=== PATIENT | female | born 1995 | race Caucasian/White ===

== ENCOUNTER 2016-11-10 21:15 | Outpatient (CLI) | payer MEDICAID ==
[~2016-11-10] VITALS: Ht 170.2 cm; Wt 143.9 kg
--- NOTE | ~2016-11-10 | DS ---
PATIENT'S NAME: APOLINAR ARNOLD [facility] AGE: 21 Y [address] ROOM: [place] [address] LOCATION: GOBS ADMIT DATE: 11/10/2016 Discharge Summary DISCHARGE DATE: 11/11/2016 FAMILY PHYSICIAN: PHYSICIAN, NO ATTENDING PHYSICIAN: Bibiana Faust This is an outpatient report from the 11 of November. This is a 1, who presents at 33 weeks gestation with abdominal discomfort. Again, she is about 33 weeks' , sees Dr. Galicia. TOCO really does not show any contractions. heart tones are reassuring. Abdomen is soft and nontender. Cervix is long, thick, and closed by my check. We started an IV and gave her a liter of IV fluids, and she says she feels a little better. Offered observation versus discharge to home. Will discharge to home at this point. She will follow up with Dr. Galicia as scheduled and tomorrow if things do not improve. MD WALKER HANNON/henrry /[id number] d: 11/12/16 0502 t: 11/12/16 1011, DISCHARGE SUMMARY
[2016-11-10 21:47] LABS: BILIRUBIN URINE NEGATIVE (NEGATIVE); BLOOD URINE NEGATIVE /UL (NEGATIVE); COLOR URINE YELLOW (YELLOW); GLUCOSE URINE NEGATIVE (NEGATIVE); KETONE URINE NEGATIVE (NEGATIVE); LEUKOCYTES URINE 100 /UL (NEGATIVE); NITRITE URINE NEGATIVE (NEGATIVE); PROTEIN URINE NEGATIVE (NEGATIVE); TURBIDITY URINE CLEAR (CLEAR); UROBILINOGEN URINE NORMAL (NORMAL)
[2016-11-10 21:54] LABS: RBC URINE RARE #/HPF (NEGATIVE)
[2016-11-10 21:55] LABS: BACTERIA URINE MANY (NEGATIVE)
[2016-11-10 21:56] LABS: MUCUS URINE 1+ (NEGATIVE)
[2016-11-10] MEDS ORDERED: PRENATAL 1+1)(P1 TAB PO (22:04)
== END 2016-11-11 00:30 | disposition disaster alternative care site (69) ==
LOC: GOBM 21:15 → GOBS 21:15 → GOBM 11-11 00:30 → GOBS 11-11 00:30 → EDSTATUS 12-29 14:08 → GOBM 12-29 16:48 → EDSTATUS 12-29 21:14
PROVIDERS: Obstetrics & Gynecology
DX: O26.893 Other specified pregnancy related conditions, third trimester (principal); Z3A.33 33 weeks gestation of pregnancy; R10.9 Unspecified abdominal pain
CPT/HCPCS: G0463; J7120

== ENCOUNTER 2016-12-13 19:29 | Outpatient (CLI) | payer MEDICAID ==
[~2016-12-13] VITALS: Ht 170.2 cm; Wt 145.1 kg
[~2016-12-13 19:29] MED LIST: PRENATAL 1+1)(P1 TAB PO
== END 2016-12-13 22:40 | disposition disaster alternative care site (69) ==
LOC: GOBM 19:29 → GOBS 19:29 → GOBM 22:40
DX: O47.1 False labor at or after 37 completed weeks of gestation (principal); Z3A.37 37 weeks gestation of pregnancy
CPT/HCPCS: G0463

== ENCOUNTER 2017-01-01 06:09 | Inpatient (IN) | payer MEDICAID ==
[~2017-01-01] VITALS: Ht 170.2 cm; Wt 144.5 kg
--- NOTE | ~2017-01-01 | OR ---
PATIENT'S NAME: CATALINA [facility] AGE: 21 Y [address] ROOM: [place] [address] LOCATION: [facility] ADMIT DATE: 01/01/2017 OR/Procedure Report DISCHARGE DATE: FAMILY PHYSICIAN: Ivette Galicia MD ATTENDING PHYSICIAN: Ivette Galicia SURGEON: Ivette Galicia MD DRY HOUSE WHEELER: DATE OF PROCEDURE: 01/02/2017 PREOPERATIVE DIAGNOSES: 1. Intrauterine at 40 weeks and 5 days. 2. Morbid obesity. 3. Induction of labor. POSTOPERATIVE DIAGNOSES: 1. Intrauterine at 40 weeks and 5 days. 2. Morbid obesity. 3. Induction of labor. PROCEDURE: Spontaneous vaginal delivery. ESTIMATED BLOOD LOSS: 300 mL. ANESTHESIA: Epidural. FINDINGS: Female . score 8 and 9. Weight 7 pounds 5 ounces. Intact placenta and 3-vessel cord. Right labial laceration. INDICATIONS: This patient is a 21-year-old, G1, P0, who presented for an induction of labor. She had an uncomplicated . She did have obesity, but had no other complications besides that. She had some borderline blood pressures in the last couple of weeks, but was negative for preeclampsia workup. DESCRIPTION OF PROCEDURE: The patient was given Cervidil Ripening and then had Pitocin. She had artificial rupture of membranes. Once she had active labor, she actually progressed very quickly to complete and underwent expulsive efforts for less than 30 minutes. With expulsive effort, the head delivered over an intact perineum. The rest of fetus delivered. The nose and mouth were bulb suctioned. The cord was clamped and cut. The infant was handed to awaiting team. Cord blood was drawn. The placenta delivered with manual traction. Cervix, vagina, and perineum were examined. There was a right labial laceration which required 1 stitch of Vicryl suture. COMPLICATIONS: None. PATIENT'S NAME: CATALINA [facility] AGE: 21 Y [address] ROOM: [place] [address] LOCATION: [facility] ADMIT DATE: 01/01/2017 OR/Procedure Report DISCHARGE DATE: FAMILY PHYSICIAN: Ivette Galicia MD ATTENDING PHYSICIAN: Ivette Galicia CONDITION: Mom stable in room. to Nursery. MD RAJINDER KINCAID/modl /[id number] d: 01/02/17 1757 t: 01/14/17 1113, OPERATIVE SUMMARY
[2017-01-01 07:11] LABS: BASOPHIL % 0.3 %; EOSINOPHIL # 0.1 K/uL (0.0-0.5); EOSINOPHIL % 1.3 %; HEMATOCRIT 39.2 % (33.0-46.0); HEMOGLOBIN 12.9 g/dL (11.0-15.0); IMMATURE GRANULOCYTE # 0.1 K/uL (0.0-0.3); IMMATURE GRANULOCYTE % 0.8 %; LYMPHOCYTE # 1.8 K/uL (0.8-4.0); LYMPHOCYTE % 17.4 %; MCH 28.5 pg (27.0-34.0); MCHC 32.9 gm/dL (32.0-36.5); MCV 86.5 fl (83.0-98.0); MONOCYTE # 0.7 K/uL (0.0-1.0); MONOCYTE % 6.8 %; MPV 9.8 fl (9.4-12.4); NEUTROPHIL # (ANC) 7.5 K/uL (1.8-7.8); NEUTROPHIL % 73.4 %; NRBC % 0 /100WBC (0-0.00); PLATELET COUNT 253 K/uL (150-450); RBC 4.53 M/uL (3.50-5.00); RDW-CV 14.1 % (11.9-14.6); WBC 10.2 K/uL (4.0-11.0)
[2017-01-01] MEDS ORDERED: TUMS200 MG PO (08:49)
[2017-01-01 15:03] LABS: ALBUMIN 2.7 gm/dL (3.5-5.0); ALK PHOS 100 IU/L (33-138); ALT 16 IU/L (12-78); ANION GAP 13.4 (10.0-19.0); AST 13 IU/L (10-40); BLOOD UREA NITROGEN 5 mg/dL (6-24); CALCIUM 8.7 mg/dL (8.5-10.5); CHLORIDE 109 mMol/L (96-110); CO2 21 mMol/L (22-32); CREATININE 0.6 mg/dL (0.5-1.1); ESTIMATED GFR (MDRD EQUATION) > 60; POTASSIUM 3.4 mMol/L (3.7-5.1); SODIUM 140 mMol/L (135-145); TOTAL BILIRUBIN 0.3 mg/dL (0.0-1.5); TOTAL PROTEIN 6.7 g/dL (6.0-8.4)
--- NOTE | 2017-01-01 18:00 | NUR ---
Last VS: T:98.2 P:109 R: 18 BP: 145/87 Pain ratin. Last pain med: None given Medicated at: Effective: FHT:130 Dilatation:1 Effacement 50%: Station: -3 Significant event: PGE2 2.5 mg x3-last @ 1747. LTV moderate w/ fhr accels. Bps 130-140's/70-92. labs good
--- NOTE | 2017-01-02 16:10 | NUR ---
UP AD NORY. LOOSE STOOLS AFTER DELIVERY. MOTRIN AT 1530 FOR CRAMPING. SALINE LOCK INTACT TO RT WRIST. S/O AT BS AND SUPPORTIVE.
[2017-01-03 05:02] LABS: BASOPHIL # 0.1 K/uL (0.0-0.2); BASOPHIL % 0.5 %; EOSINOPHIL # 0.3 K/uL (0.0-0.5); HEMATOCRIT 37.8 % (33.0-46.0); HEMOGLOBIN 12.4 g/dL (11.0-15.0); IMMATURE GRANULOCYTE # 0.2 K/uL (0.0-0.3); IMMATURE GRANULOCYTE % 1.2 %; LYMPHOCYTE # 2.4 K/uL (0.8-4.0); LYMPHOCYTE % 19.8 %; MCH 28.7 pg (27.0-34.0); MCHC 32.8 gm/dL (32.0-36.5); MCV 87.5 fl (83.0-98.0); MONOCYTE % 8.4 %; MPV 10.2 fl (9.4-12.4); NEUTROPHIL # (ANC) 8.3 K/uL (1.8-7.8); NEUTROPHIL % 68.1 %; NRBC % 0 /100WBC (0-0.00); PLATELET COUNT 223 K/uL (150-450); RBC 4.32 M/uL (3.50-5.00); RDW-CV 14.1 % (11.9-14.6); WBC 12.2 K/uL (4.0-11.0)
--- NOTE | 2017-01-03 05:33 | NUR ---
VSS. Fundus firm and midline. Pt walked the halls. Independent with cares. SL to right wrist. No pain meds given this shift.
--- NOTE | 2017-01-03 15:56 | NUR ---
Met with patient, significant other and grandparent today. Introduced myself and explained my role with CM. Family lives in [place]. They go to [place] for most of their community resources. Mom is already connected with the WIC clinic in [place]. Instructed mom and dad to contact Medicaid and notify them of baby's . Also discussed signs and symptoms of post depression with mom and left her reading material to review. Mom has had a history of depression so she states she is aware of the signs to watch for. They deny any other needs at this time and plan to discharge to home tomorrow.
--- NOTE | 2017-01-03 17:25 | NUR ---
Last VS: T:97.9 P:66 R: 16 BP: 131/89 Pain ratin Last pain med: Motrin Medicated at: 1612 Effective: Yes Breasts: SOFT Nipples: SORE REDDENED, HAS LANOLIN AND APNO Fundus: FIRM, EVEN, MIDLINE Lochia: SMALL, RUBRA- PASSED 2 CLOTS QUARTER SIZED TO A LITTLE LARGER Epis/Perineum: APPROXIMATED, TENDER Voiding well: YES Significant event: JACUZIE TUB BATH, SHEETS CHANGED. PUMPING INITIATED TODAY BABY HAS NOT BEEN NURSING WELL, MORE EAGER WITH THE BOTTLE.
--- NOTE | 2017-01-04 04:38 | NUR ---
vss, fundus firm, at umbilicus, small flow. motrin given at 0216. pt has been attempting to breastfeed and then pumps. independent with cares. kiko due at 0900. home today.
[2017-01-04] MEDS ORDERED: PRISTIQ 50 MG E50 MG PO (10:29)
[2017-01-04] MEDS ORDERED: MOTRIN800 MG PO (10:29)
[2017-01-04] MEDS ORDERED: PERCOCET 5-3251 EACH PO (10:30)
== END 2017-01-04 13:15 | disposition disaster alternative care site (69) | DRG 775 ==
LOC: GOBM 06:09 → GOBS 06:09 → GOBM 06:10 → GOBS 06:10
PROVIDERS: ADMIT Obstetrics & Gynecology
PROC: 3E0P7GC Introduction of Other Therapeutic Substance into Female Reproductive, Via Natural or Artificial Opening (ICD-10-PCS; principal; 2017-01-02)
PROC: 10E0XZZ Delivery of Products of Conception, External Approach (ICD-10-PCS; 2017-01-02)
PROC: 0HQ9XZZ Repair Perineum Skin, External Approach (ICD-10-PCS; 2017-01-02)
DX: O48.0 Post-term pregnancy (principal); E66.9 Obesity, unspecified; Z37.0 Single live birth; Z3A.40 40 weeks gestation of pregnancy; O70.0 First degree perineal laceration during delivery; O99.214 Obesity complicating childbirth
CPT/HCPCS: J2590; J3010; J7120

== ENCOUNTER 2017-03-29 20:06 | Emergency (ER) | payer MEDICAID ==
--- NOTE | ~2017-03-29 | ER ---
[facility] AGE: 21 Y [address] ROOM: [place] [address] LOCATION: ED ADMIT DATE: 03/29/2017 ER/Outpatient Report DISCHARGE DATE: 03/29/2017 FAMILY PHYSICIAN: Duong Peralta PA-C ATTENDING PHYSICIAN: Albaro Jacobson Arrival Time: 20:11. Encounter Time: 20:15. SUBJECTIVE: CHIEF COMPLAINT: Abdominal pain/flank pain. HISTORY OF PRESENT ILLNESS: The patient arrives via private auto driven by her . She is a 21-year- old female, complaining of abdominal pain and flank pain. For the last week, it has been waxing and waning. Some nausea, but no vomiting. Complains of urinary frequency as well, but denies urgency or burning. Last BM was on 03/28/2017, yesterday. Normal in consistency. Other pertinent history involves that the patient is three months vaginal to their daughter. Uncomplicated and delivery. The patient had a small mass of tissue present in a stool 2-3 days ago. She took a picture of it and it appears to be a 3-4 cm piece of endometrial tissue. Possibly remaining products of conception that were within the uterine cavity. The patient denies any passage of blood or spotting recently. She is currently on the Depo-Provera shot that she received 2-3 weeks ago, but began having sex again with her over the last week to week and a half. PERTINENT REVIEW OF SYSTEMS: All systems reviewed by me and negative unless otherwise stated in the HPI. Negative for fever, chills, or sweats. PAST MEDICAL HISTORY: Includes depression. PAST SURGICAL HISTORY: Includes gallbladder surgery, shoulder surgery, but the patient did not denote aside, and tonsillectomy as a kid. SOCIAL HISTORY: Denies any street drugs or smoking, but does partake of alcohol occasionally. [facility] 21 [facility] [address] ROOM: [place] [address] LOCATION: [facility] ADMIT DATE: 03/29/2017 ER/Outpatient Report DISCHARGE DATE: 03/29/2017 FAMILY PHYSICIAN: Duong Peralta PA-C ATTENDING PHYSICIAN: Albaro Jacobson MEDICATIONS: 1. Prozac 20 mg. 2. Effexor of unknown dosing every day. 3. Depo-Provera shot. DRUG ALLERGIES: To Wellbutrin, which causes itching in the patient. PHYSICAL EXAMINATION: VITAL SIGNS: Height 5 feet 7 inches, weight 129.6 kg, blood pressure 131/82, pulse 73, respirations 16, temperature 98.1 degrees Fahrenheit via temporal scanner, SpO2 100% on room air. Pain level currently at 6/10. GENERAL: The patient is an obese female, in mild distress. Calm, alert, and oriented to person, place, and time. HEENT: Head is atraumatic and normocephalic. Eyes, conjunctivae clear. No discharge. Pupils are PERRLA bilaterally. EOMFI bilaterally. No nystagmus. Ears, TM with good light reflex bilaterally. Auditory canal patent bilaterally. Nose, turbinates are pink and not swollen. No drainage. Throat with midline uvula. No exudates, erythema, or tonsillar hypertrophy. NECK: Supple and without lymphadenopathy. Trachea midline. No JVD. LUNGS: Clear to auscultation bilaterally. No wheezes, crackles, rhonchi, or stridor. Normal respiratory effort. HEART: Regular rate and rhythm. No S3, S4, or extra sounds. ABDOMEN: With positive bowel sounds x4. Normal percussion, but technically difficult due to body habitus. Soft. Mildly tender right upper quadrant. Nondistended. No masses. Kervin's weakly positive on the right. RECTAL AND PELVIC: Deferred. EXTREMITIES: Without numbness or tingling. No clubbing, cyanosis, or edema. Full range of motion. +2/4 pulses bilaterally at the radial artery. LABORATORY DATA AND X-RAYS: Urinalysis shows urine color yellow, turbidity clear, spec gravity 1.010, pH 6.0, leukocytes 100 units, nitrite negative, protein negative, glucose negative, ketone negative, urobilinogen normal, bilirubin negative, blood negative. UA micro shows 5-10 white blood cells per high-power field, red blood cells rarely present in each high-power field. Epithelial cells showing 2-5 per high-power field, few bacteria, and +1 amorphous cells. Urine HCG was negative. CBC largely negative as well. White count at 9.9, red blood cell 4.70, hemoglobin 13.6, hematocrit 41.1. MCV 87.4, MCH 28.9, MCHC 33.1, RDW 13.2, platelets 323, MPV 9.8. Auto diff was negative. CMS shows sodium at 140. Potassium 4.0, chloride 109, CO2 of 24, anion gap 11.0, glucose 83, BUN 9, calcium 8.9, creatinine 0.7, protein 0.7, albumin 3.8, globulin 3.8, A/G ratio 1.0. Total bilirubin 0.4 ,alkaline phosphatase 66, AST 32, ALT 65. Estimated PATIENT'S NAME: APOLINAR ARNOLD [facility] AGE: 21 Y [address] ROOM: [place] [address] LOCATION: [facility] ADMIT DATE: 03/29/2017 ER/Outpatient Report DISCHARGE DATE: 03/29/2017 FAMILY PHYSICIAN: Duong Peralta PA-C ATTENDING PHYSICIAN: Albaro Jacobson GFR greater than 90. All the above lab work was discussed in detail with the patient. She verbalized understanding. ASSESSMENT: 1. Right upper quadrant abdominal pain. 2. Urinary tract infection. PLAN: The patient appears to have a clinical urinary tract infection confirmed with white blood cells present on urinalysis. is negative. She may have moved some final products of the placenta at this point, but I feel she should follow up routinely with her behavioral intervention specialist or primary care provider should she continue to have abdominal pain upon completion of the antibiotic course. I feel that a mild bladder infection may explain her current complaint at this time. We will start her on some Bactrim for the next 5 days. Advised her to push fluid. Also provided her with UTI handout. Take all medications as prescribed. Discussed med risks, side effects, and benefits in detail. Give plenty of rest and liquids. Take Tylenol or ibuprofen as directed for fever or discomfort unless allergic, asthmatic, or aspirin sensitive. Return to the emergency department or primary care provider if symptoms persist or worsen. DEMOND WATERMAN PA-C FOR ALBARO JACOBSON MD SMR/modl /[id number] d: 03/29/17 2337 t: 04/05/17 1203, OUTPATIENT REPORT
[~2017-03-29 20:06] MED LIST changes: +MOTRIN800 MG PO; +PERCOCET 5-3251 EACH PO; +PRISTIQ 50 MG E50 MG PO; +TUMS200 MG PO
[2017-03-29 21:11] LABS: BASOPHIL # 0.1 K/uL (0.0-0.2); BASOPHIL % 0.5 %; EOSINOPHIL # 0.2 K/uL (0.0-0.5); EOSINOPHIL % 2.1 %; HEMATOCRIT 41.1 % (33.0-46.0); HEMOGLOBIN 13.6 g/dL (11.0-15.0); IMMATURE GRANULOCYTE % 0.2 %; LYMPHOCYTE # 2.9 K/uL (0.8-4.0); LYMPHOCYTE % 29.8 %; MCH 28.9 pg (27.0-34.0); MCHC 33.1 gm/dL (32.0-36.5); MCV 87.4 fl (83.0-98.0); MONOCYTE # 0.8 K/uL (0.0-1.0); MONOCYTE % 8.1 %; MPV 9.8 fl (9.4-12.4); NEUTROPHIL # (ANC) 5.8 K/uL (1.8-7.8); NEUTROPHIL % 59.3 %; NRBC % 0 /100WBC (0-0.00); RDW-CV 13.2 % (11.9-14.6); WBC 9.9 K/uL (4.0-11.0)
[2017-03-29 21:11] LABS: BILIRUBIN URINE NEGATIVE (NEGATIVE); BLOOD URINE NEGATIVE /UL (NEGATIVE); COLOR URINE YELLOW (YELLOW); GLUCOSE URINE NEGATIVE (NEGATIVE); KETONE URINE NEGATIVE (NEGATIVE); LEUKOCYTES URINE 100 /UL (NEGATIVE); NITRITE URINE NEGATIVE (NEGATIVE); PROTEIN URINE NEGATIVE (NEGATIVE); TURBIDITY URINE CLEAR (CLEAR); UROBILINOGEN URINE NORMAL (NORMAL)
[2017-03-29 21:12] LABS: PLATELET COUNT 323 K/uL (150-450)
[2017-03-29 21:21] LABS: BACTERIA URINE FEW (NEGATIVE); RBC URINE RARE #/HPF (NEGATIVE)
[2017-03-29 21:22] LABS: AMORPHOUS URINE 1+ (NEGATIVE)
[2017-03-29 21:27] LABS: ALBUMIN 3.8 gm/dL (3.5-5.0); ALK PHOS 66 IU/L (33-138); ALT 65 IU/L (12-78); AST 32 IU/L (10-40); BLOOD UREA NITROGEN 9 mg/dL (6-24); CALCIUM 8.9 mg/dL (8.5-10.5); CHLORIDE 109 mMol/L (96-110); CO2 24 mMol/L (22-32); CREATININE 0.7 mg/dL (0.5-1.1); SODIUM 140 mMol/L (135-145); TOTAL PROTEIN 7.6 g/dL (6.0-8.4)
[2017-03-29 21:31] LABS: TOTAL BILIRUBIN 0.4 mg/dL (0.0-1.5)
== END 2017-03-29 21:38 | disposition disaster alternative care site (69) ==
LOC: GMED 20:06
PROVIDERS: Emergency Medicine
DX: N39.0 Urinary tract infection, site not specified (principal); F32.9 Major depressive disorder, single episode, unspecified; Z88.8 Allergy status to other drugs, medicaments and biological substances; Z90.89 Acquired absence of other organs; Z98.890 Other specified postprocedural states; Z79.899 Other long term (current) drug therapy